=== PATIENT | female | born 1990 | race African-American/Black ===

== ENCOUNTER 2018-06-09 04:51 | Inpatient (IN) | payer OTHER ==
[2018-06-06 10:30] LABS: HEMOGLOBIN 11.7 g/dL (12.0-15.5); MEAN CORPUSCULAR HEMOGLOBIN 24.1 pg (27.0-33.4); MEAN CORPUSCULAR HGB CONC 33.4 g/dL (32.0-36.0); MEAN CORPUSCULAR VOLUME 72 fl (80-97); PLATELET COUNT 267 10^3/uL (150-450); RED BLOOD COUNT 4.85 10^6/uL (3.72-5.28); RED CELL DISTRIBUTION WIDTH 18.8 % (11.5-14.0); WHITE BLOOD COUNT 9.4 10^3/uL (4.0-10.5)
[2018-06-06 10:47] LABS: APPEARANCE,URINE CLOUDY; BILIRUBIN,URINE NEGATIVE (NEGATIVE); COLOR,URINE YELLOW; GLUCOSE, URINE NEGATIVE (NEGATIVE); KETONES,URINE NEGATIVE (NEGATIVE); LEUKOCYTE ESTERASE,URINE SMALL (NEGATIVE); NITRITE,URINE NEGATIVE (NEGATIVE); PROTEIN,URINE NEGATIVE (NEGATIVE); URINE SPECIFIC GRAVITY 1.013
[2018-06-06 11:16] LABS: URINE AMPHETAMINES SCREEN NEGATIVE; URINE BARBITURATES SCREEN NEGATIVE; URINE BENZODIAZEPINES SCREEN NEGATIVE; URINE COCAINE SCREEN NEGATIVE; URINE MARIJUANA (THC) SCREEN NEGATIVE; URINE METHADONE SCREEN NEGATIVE; URINE PHENCYCLIDINE SCREEN NEGATIVE
[2018-06-09] MEDS ORDERED: CEFAZOLIN 2 GM/D5W RTU 2 GM/50 ML RTUPB IV PRN (05:36)
[2018-06-09] MEDS ORDERED: RINGERS SOLUTION,LACTATED 1,000 ML IV PRN ×2 (05:39→09:08)
[2018-06-09] MEDS ORDERED: LIDOCAINE 0.5% INJ-PF (5 MG/ML) 50 ML SDV SUBCUT PRN (05:40)
[2018-06-09] MEDS ORDERED: RINGERS SOLUTION,LACTATED 1,500 ML IV ONE (05:45)
[2018-06-09] MEDS ORDERED: LIDOCAINE 2% INJ-PF (20 MG/ML) 10 ML AMPUL ONE (06:28)
[2018-06-09] MEDS ORDERED: FENTANYL CITRATE INJ/PF 100 MCG/2 ML AMPUL ONE (06:28)
[2018-06-09] MEDS ORDERED: OXYTOCIN 10 UNIT/ML VIAL ONE (06:28)
[2018-06-09] MEDS ORDERED: PROPOFOL INJ 200 MG/20 ML VIAL IV ONE (06:29)
[2018-06-09] MEDS ORDERED: ACETAMINOPHEN 1,000 MG/100 ML RTUPB IV ONE ×2 (06:29→09:41)
[2018-06-09] MEDS ORDERED: ONDANSETRON HCL INJ/PF 4 MG/2 ML SDV ONE (06:29)
[2018-06-09] MEDS ORDERED: MIDAZOLAM 2 MG/2 ML INJ ONE (06:29)
[2018-06-09] MEDS ORDERED: BUPIVACAINE HCL/DEX-WATER/PF 15 MG/2 ML AMPULE ONE (06:30)
[2018-06-09] MEDS ORDERED: OXYTOCIN/NORMAL SALINE 20 UNIT/1,000 ML RTUINJ ONE (06:34)
[2018-06-09] MEDS ORDERED: EPHEDRINE SULFATE INJ 50 MG/1 ML AMPULE ONE (06:39)
[2018-06-09] MEDS ORDERED: PHENYLEPHRINE HCL INJ/PF 10 MG/1 ML SDV ONE (06:40)
[2018-06-09] MEDS ORDERED: ONDANSETRON HCL INJ/PF 4 MG/2 ML SDV IV PRN (07:22)
[2018-06-09] MEDS ORDERED: FENTANYL CITRATE INJ/PF 100 MCG/2 ML AMPUL IV PRN ×3 (07:22)
[2018-06-09] MEDS ORDERED: PROMETHAZINE HCL INJ 25 MG/1 ML VIAL IV PRN ×3 (07:22→09:08)
[2018-06-09] MEDS ORDERED: DIPHENHYDRAMINE HCL 50 MG/ML VIAL IV PRN (07:22)
[2018-06-09] MEDS ORDERED: MEPERIDINE HCL/PF INJ 25 MG/1 ML DISP.SYRIN IV PRN (07:22)
[2018-06-09] MEDS ORDERED: MORPHINE SULFATE 10 MG/ML INJ IV PRN ×2 (07:22→09:08)
[2018-06-09] MEDS ORDERED: MEASLES,MUMPS&RUBELLA VACC/PF 0.5 ML VIAL SUBCUT PRN (09:08)
[2018-06-09] MEDS ORDERED: ACETAMINOPHEN 1,000 MG/100 ML RTUPB IV PRN (09:08)
[2018-06-09] MEDS ORDERED: ACETAMINOPHEN 325 MG TABLET PO PRN (09:08)
[2018-06-09] MEDS ORDERED: SIMETHICONE 80 MG TAB.CHEW PO PRN (09:08)
[2018-06-09] MEDS ORDERED: DIPH/PERTUSS(ACELL)/TETANUS VAC/PF 0.5 ML SYR (>=10YO) IM PRN (09:08)
[2018-06-09] MEDS ORDERED: OXYTOCIN/NORMAL SALINE 20 UNIT/1,000 ML RTUINJ IV PRN (09:08)
[2018-06-09] MEDS ORDERED: OXYCODONE-ACETAMINOPHEN 5-325 MG TABLET PO PRN (09:08)
--- NOTE | 2018-06-09 09:08 | PDOC DELIVERY SUMMARY ---
Delivery Summary - Maternal Hx : II Hx Para: I FRANCK: 06/16/18 Risk Factors: Previous Ruptured Membranes: AROM Time of Rupture: 08:26 Fluids: Clear - Delivery Presentation: Vertex Heart Rate Monitoring: Done Pre-Operatively Support Person Present: Yes - Location: OR : Scheduled Placenta: Within Normal Limits Delivery of Placenta Date: 06/09/18 Delivery of Placenta Time: 08:27 - Medications Type of Anesthesia:: Spinal - Assess and Care Baby 1 Female Delivery of Date: 06/09/18 Delivery of Infant Time: 08:26 at 1 minute: 8 at 5 minutes: 9 Preprinted Number On Band: [id number] Skin to Skin: Yes Skin to Skin (Mins): 5 To Nursery At: 08:38 Mode of Transport: Bassinet Infant Delivery Weight: 3,090 Infant Delivery Length: 19 in - Delivery Personnel Cover Operator: EDDIE BENAVIDES Nursery RN: NGOC SANDOVAL RN: ANGELINA JANG RN: LUIS MANUEL KENNEY MD: IRIS EDEN
--- NOTE | 2018-06-09 09:47 | OPERATIVE REPORT E ---
Operative Report NAME: JANIYA DYER : 1990 AGE: 27Y DATE OF SURGERY: 06/09/2018 ROOM: 227 PREOPERATIVE DIAGNOSIS: IUP at 39 weeks, previous x1. POSTOPERATIVE DIAGNOSIS: IUP at 39 weeks, previous x1. OPERATION: Repeat low-transverse hysterotomy section. SURGEON: IRIS EDEN M.D. ANESTHESIA: Rad Sun M.D. with spinal. FINDINGS: Female infant in cephalic presentation with Apgars of 8 and 9, weight 6 pounds 13 ounces. COMPLICATIONS: None. ESTIMATED BLOOD LOSS: 650 mL. SPECIMENS: None. PROCEDURE IN DETAIL: The patient was taken to the operating room, prepared, and draped in a normal sterile fashion in the supine position with a leftward tilt. A transverse skin incision was made with a scalpel and carried through to the underlying layer of fascia. With the same scalpel the fascia was excised in the midline and extended bilaterally with Patria. The fascia was then dissected from the rectus muscles sharply with Patria and the rectus muscle was divided. The peritoneal cavity was entered bluntly with good visualization of the bladder and the uterus. A bladder blade was inserted. The hysterotomy was nicked with a scalpel and extended laterally with surgeon finger fraction. The was then delivered atraumatically. The nose and mouth were suctioned with the suction bulb, the cord was clamped and cut, and the infant was handed off to the awaiting casino manager. Cord blood was collected. The placenta was removed manually. The uterus was exteriorized and cleared of clots and debris. Hysterotomy was closed with 0 Monocryl in a running, locked fashion. A second layer of the same suture was used to imbricate to ensure hemostasis. The uterus was returned to the abdomen. Peritoneal cavity was cleared of clots and debris. The rectus muscle and peritoneum were reapproximated with a mattress stitch of 2-0 chromic. The fascia was closed with 0 Vicryl. The subcutaneous layer was closed with plain catgut, and the skin was closed with 4-0 Vicryl. The patient tolerated the procedure well. Sponge, lap, and needle counts were correct x2. The patient was taken to recovery in stable condition. DICTATING PHYSICIAN: IRIS EDEN M.D. [id number] PHY#: [id number] ID: [id number] JOB#: [id number] ACCT: [id number] cc:IRIS EDEN M.D. >
[2018-06-09] MEDS ORDERED: DHA PO SCH (10:00)
[2018-06-09] MEDS ORDERED: [UNRECOGNIZED DRUG - OTHER] PO SCH (10:00)
[2018-06-09] MEDS ORDERED: FOLIC PO SCH (10:00)
[2018-06-09] MEDS ORDERED: DSS PO SCH (10:00)
[2018-06-09] MEDS: DOCUSATE SODIUM 100 MG CAPSULE PO SCH ×2 (12:51→17:54)
[2018-06-09] MEDS: FERROUS SULFATE 325 MG TABLET PO SCH ×2 (12:51→17:54)
[2018-06-09] MEDS: PRENATAL VITAMIN W DHA CAPSULE PO SCH (12:58)
[2018-06-09] MEDS: KETOROLAC TROMETHAMINE INJ/PF 30 MG/1 ML SDV IV SCH ×2 (14:35→22:55)
[2018-06-09] MEDS: OXYCODONE-ACETAMINOPHEN 5-325 MG TABLET PO PRN (19:40)
[2018-06-10] MEDS: KETOROLAC TROMETHAMINE INJ/PF 30 MG/1 ML SDV IV SCH (05:31)
[2018-06-10 06:45] LABS: HEMATOCRIT 34.5 % (36.0-47.0); HEMOGLOBIN 11.3 g/dL (12.0-15.5); MEAN CORPUSCULAR HGB CONC 32.8 g/dL (32.0-36.0); MEAN CORPUSCULAR VOLUME 73 fl (80-97); PLATELET COUNT 220 10^3/uL (150-450); RED BLOOD COUNT 4.73 10^6/uL (3.72-5.28); RED CELL DISTRIBUTION WIDTH 19.2 % (11.5-14.0); WHITE BLOOD COUNT 8.8 10^3/uL (4.0-10.5)
--- NOTE | 2018-06-10 09:19 | PDOC PROGRESS REPORT ---
Subjective-OB Progress Note for:: 06/10/18 Subjective: Pt doing well, no concerns. She reports ambulating to the bathroom, light bleeding, voiding without difficulty. Regular breakfast this am. No flatus. Physical Exam (OB) Vital Signs: Temp Pulse Resp BP Pulse Ox 98.1 F 79 17 108/62 98 06/10/18 07:46 06/10/18 07:46 06/10/18 07:46 06/10/18 07:46 06/10/18 07:46 Intake & Output 06/09/18 06/10/18 06/11/18 06:59 06:59 06:59 Intake Total 2740 240 Output Total 1900 Balance 840 240 - PIH/Pre-Eclampsia Clonus: Negative Headache: Absent Epigastric Pain: No Visual Changes: No - Dressing Removed: No - opsite dressing intact, small old drainage noted, no swelling or redness Incision: Dressing, Well Approximated - Abdomen Description: Tender, Soft, Round Hernia Present: No Fundal Description: Firm, Midline Fundal Height: u/u - u/2 Objective-Diagnostic Laboratory: 06/10/18 06:35 06/10/18 06:35 WBC 8.8 RBC 4.73 Hgb 11.3 L Hct 34.5 L MCV 73 L MCH 24.0 L MCHC 32.8 RDW 19.2 H Plt Count 220 Assessment and Plan(PN) - Assessment and Plan (1) delivery delivered Is this a current diagnosis for this admission?: Yes - Time Spent with Patient Time with patient: Less than 15 minutes Medications reviewed and adjusted accordingly: Yes - Disposition Anticipated Discharge: Home Within: within 24 hours
[2018-06-10] MEDS: DOCUSATE SODIUM 100 MG CAPSULE PO SCH ×2 (09:43→17:54)
[2018-06-10] MEDS: FERROUS SULFATE 325 MG TABLET PO SCH ×2 (09:43→17:53)
[2018-06-10] MEDS: PRENATAL VITAMIN W DHA CAPSULE PO SCH (09:43)
[2018-06-10] MEDS: OXYCODONE-ACETAMINOPHEN 5-325 MG TABLET PO PRN ×2 (09:44→22:05)
[2018-06-10] MEDS: IBUPROFEN 800 MG TABLET PO SCH ×2 (13:17→17:54)
[2018-06-11] MEDS: IBUPROFEN 800 MG TABLET PO SCH ×3 (00:20→11:21)
[2018-06-11] MEDS: DOCUSATE SODIUM 100 MG CAPSULE PO SCH (09:45)
[2018-06-11] MEDS: FERROUS SULFATE 325 MG TABLET PO SCH (09:45)
[2018-06-11] MEDS: PRENATAL VITAMIN W DHA CAPSULE PO SCH (09:45)
[2018-06-11 11:11] VITALS: BP 110/67
--- NOTE | 2018-06-11 11:20 | PDOC DISCHARGE SUMMARY ---
Final Diagnosis Discharge Date: 06/11/18 - Final Diagnosis (1) delivery delivered Is this a current diagnosis for this admission?: Yes Discharge Data - Discharge Medication Prescriptions: Oxycodone HCl/Acetaminophen [Percocet 5-325 mg Tablet] 2 tab PO Q4HP PRN #20 tablet PRN Reason: For Pain Scale 3-5 Ibuprofen [Motrin 800 mg Tablet] 800 mg PO Q8HP PRN #60 tablet PRN Reason: For Pain Scale 1-3 Docusate Sodium [Colace 100 mg Capsule] 100 mg PO BID #60 capsule Home Medications: Ferrous Sulfate [Feosol] 325 mg PO BID 06/06/18 Pnv72/Iron,Gluc/Folic/Dss/Dha [Citranatal 90 Dha Combo Pack] 1 each PO DAILY 06/06/18 Docusate Sodium [Colace 100 mg Capsule] 100 mg PO BID #60 capsule 06/11/18 Ibuprofen [Motrin 800 mg Tablet] 800 mg PO Q8HP PRN #60 tablet 06/11/18 Oxycodone HCl/Acetaminophen [Percocet 5-325 mg Tablet] 2 tab PO Q4HP PRN #20 tablet 06/11/18 Reason(s) for Admission: Ceasarean Section-Repeat Procedures: Ultrasound Intrapartum Procedure(s): : Low Cervical, Transverse - Diagnosis Test Laboratory: Temp Pulse Resp BP Pulse Ox 97.7 F 77 16 110/67 98 06/11/18 11:12 06/11/18 11:12 06/11/18 11:12 06/11/18 11:12 06/11/18 11:12 06/06/18 06/06/18 06/10/18 09:15 09:20 06:35 RBC 4.85 4.73 Hgb 11.7 L 11.3 L Hct 35.0 L 34.5 L Urine Opiates Screen NEGATIVE - Discharge information/Instructions Discharge Activity: Activity As Tolerated, Balance Activity w/Rest, No Driving, No Lifting Over 10 Pounds, No Lifting/Push/Pulling, Pelvic Rest, Slowly Increase Activity, No tub bath, Walk Frequently Discharge Diet: As Tolerated, Regular Disposition: HOME, SELF-CARE Follow up with: [facility]: 2, Days - as scheduled
== END 2018-06-11 13:30 | disposition home or self-care (01) | DRG 788 ==
LOC: 2S 04:51
PROVIDERS: ADMIT Obstetrics & Gynecology; ATTEND Obstetrics & Gynecology
PROC: 10D00Z1 Extraction of Products of Conception, Low, Open Approach (ICD-10-PCS; principal; 2018-06-09 07:45)
DX: O34.211 Maternal care for low transverse scar from previous cesarean delivery (principal); O99.02 Anemia complicating childbirth; D57.3 Sickle-cell trait; O99.214 Obesity complicating childbirth; N85.8 Other specified noninflammatory disorders of uterus; Z3A.39 39 weeks gestation of pregnancy; Z37.0 Single live birth
CPT/HCPCS: 1961; 36415; 80307; 81001; 85027; 86850; 86900; 86901; 90715; 94799; J0131; J1885; J2250; J2270; J2370; J2405; J2590; J2704; J3010; J3490; J7120